=== PATIENT | female | born 1985 | race Caucasian/White ===

== ENCOUNTER 2021-01-29 09:34 | Emergency (ER) | payer OTHER ==
[~2021-01-29] VITALS: Ht 165.1 cm; Wt 75.0 kg
[2021-01-29] MEDS ORDERED: DOXY100C3 PO (09:45)
[2021-01-29] MEDS ORDERED: DOXYCYCLINE HYCLATE 100 MG TABLET PO ONE (09:45)
--- NOTE | 2021-01-29 09:46 | PHYS DOC ---
Adult General HPI HPI Patient is a 35-year-old female presenting via EMS for left ocasio wound. Reports she has had a history of folliculitis and has had prior history of cellulitis requiring antibiotics and abscesses requiring incision and drainage. Reports she kicked her left anterior ocasio approximately 1 week ago on an unknown househo ld object that caused a cut. This subsequently got infected with increased exudate drainage and spreading erythema. She has been putting triple antibiotic ointment on lesion without improvement. She is here concern for infection and need for antibiotics. Denies any fever, no known history of MRSA infection, denies any IV drug use Review of Systems Review of Systems Fourteen body systems of review of systems have been reviewed. See HPI for pertinent positives and negative responses, other uribe all other systems are negative, non-pertinent or non-contributory Physical Exam Physical Exam Constitutional: Well developed, well nourished, no acute distress, non-toxic appearance. HENT: Normocephalic, atraumatic, bilateral external ears normal, oropharynx moist, no oral exudates, nose normal. Eyes: PERRLA, EOMI, conjunctiva normal, no discharge. Neck: Normal range of motion, no tenderness, supple, no stridor. Cardiovascular: Heart rate regular per monitor Lungs & Thorax: No respiratory distress or accessory muscle use, bilateral chest rise Abdomen: Abdomen soft, non-tender, bowel sounds present in all quadrants, no guarding or rebound, nonacute abdomen. Skin: Warm, dry, there is a portion on distal portion of left anterior ocasio of a poorly healing scab with purulent material draining approximately 1.5 cm in diameter with associated surrounding erythema greater than 5 cm diameter that is warm to the touch Back: No tenderness, no CVA tenderness. Extremities: No tenderness, no cyanosis, no clubbing, ROM intact, no edema. Neurologic: Alert and oriented X 3, grossly normal motor & sensory function, no focal deficits noted. Psychologic: Odd affect, anxious mood Current Patient Data Vital Signs Vital Signs Date Time Temp Pulse Resp B/P (MAP) Pulse Ox O2 Delivery O2 Flow Rate FiO2 01/29/21 09:35 94.6 82 18 144/85 (104) 96 Room Air Vital Signs Date Time Temp Pulse Resp B/P (MAP) Pulse Ox O2 Delivery O2 Flow Rate FiO2 01/29/21 10:05 85 18 150/84 (106) 96 Room Air 01/29/21 09:35 94.6 EKG EKG [] Radiology/Procedures Radiology/Procedures [] Heart Score C/O Chest Pain: No Risk Factors: Risk Factors: DM, Current or recent (<one month) smoker, HTN, HLP, family history of CAD, obesity. Risk Scores: Risk Factors: DM, Current or recent (<one month) smoker, HTN, HLP, family history of CAD, obesity. Course & Med Decision Making Course & Med Decision Making ABCs unremarkable HPI physical exam and comprehensive ER work-up nonconcerning for any emergent or surgical issues Patient has simple cellulitis of distal portion of left anterior ocasio meeting indication for antibiotics. Joint decision made to treat with doxycycline as this will cover MRSA and has been tolerated by patient in the past Close PCP follow-up with continued wound care instructions and compliance to medication regimen advised Celestina Disclaimer Celestina Disclaimer This electronic medical record was generated, in whole or in part, using a voice recognition dictation system. Departure Departure: Impression: Primary Impression: Left leg cellulitis Disposition: HOME / SELF CARE / HOMELESS Condition: STABLE Patient Instructions: Cellulitis Additional Instructions: You were seen for an infection called cellulitis. You should eli the area of redness when you get home. If your redness spreads past the marked area at 24 hours you should have it evaluated again. You do not have an abscess right now but you could develop one. If so you will need to have it drained. You should return to the ED immediately if you develop worsening pain, fever, swelling, redness, drainage, any sign of abscess, or any other new or concerning symptoms. Take the entire course of antibiotics as prescribed. CAMPBELL JUARES DO Jan 29, 2021 09:45
[2021-01-29 10:05] VITALS: BP 150/84
[2021-01-30] MEDS ORDERED: DOXY100C3 PO ×2 (12:12→12:15)
== END 2021-01-29 10:05 | disposition home or self-care (01) ==
LOC: ER 09:34
DX: L03.116 Cellulitis of left lower limb (principal)
CPT/HCPCS: 99283

== ENCOUNTER 2021-01-30 11:41 | Emergency (ER) | payer SELFPAY ==
[~2021-01-30] VITALS: Ht 165.1 cm; Wt 127.4 kg
[2021-01-30 11:41] VITALS: BP 159/102
[~2021-01-30 11:41] MED LIST: DOXY100C3 PO
[2021-01-30] MEDS ORDERED: DOXYCYCLINE HYCLATE 100 MG TABLET ONE (12:10)
[2021-01-30] MEDS ORDERED: DOXY100C3 PO ×2 (12:12→12:15)
--- NOTE | 2021-01-30 12:13 | PHYS DOC ---
Past History Additional Past Medical Histor: HPV, prediabetes (PRABHU DAVID) Past Surgical History: Cholecystectomy, Other Additional Past Surgical Histo: ECTOPIC (PRABHU DAVID) Alcohol Use: None (PRABHU DAVID) General Adult EDM: Chief Complaint: WOUND CHECK HPI: HPI: Patient is a 35 year old female who returns to the emergency department for diagnosed left lower leg cellulitis yesterday. Patient reports she was instructed to return to the emergency department if the infection spread past the markings applied by the provider yesterday. Patient was unable to cook pickled meat her prescription this morning due to transportation issues. Patient states that she does not have a car, her girlfriend does not have a car, and neither do her roommates. She is unable to ambulate without pain at this time, so she was unable to walk to the pharmacy to cook pickled meat the prescription. She has no new complaints since yesterday, only spreading erythema. (PRABHU DAVID) Review of Systems: Review of Systems: ROS negative except as mentioned in HPI. (PRABHU DAVID) Allergies: Allergies: Allergies Coded Allergies Type Severity Reaction Last Updated Verified Penicillins Allergy Unknown 01/29/21 Yes Sulfa (Sulfonamide Antibiotics) Allergy Unknown 01/29/21 Yes amoxicillin Allergy Unknown 01/29/21 Yes clindamycin Allergy Unknown 01/30/21 Yes erythromycin base Allergy Unknown 01/29/21 Yes sulfamethoxazole Allergy Unknown 01/29/21 Yes trimethoprim Allergy Unknown 01/29/21 Yes (PRABHU DAVID) Physical Exam: PE: Constitutional: Obese, poorly groomed, no acute distress, non-toxic appearance. Cardiovascular: Heart rate regular rhythm, no murmur. Lungs & Thorax: Bilateral breath sounds clear to auscultation. Skin: Left lower extremity has a 5 cm open wound surrounded by erythematous skin that is warm to the touch without fluctuance. Erythema extends beyond margins drawn. Additionally, patient has 1 cm open wound without fluctuance to the dorsal aspect of her left hand. Extremities: No cyanosis, no clubbing, ROM intact, no edema. (PRABHU DAVID) Current Patient Data: Vital Signs: Vital Signs Date Time Temp Pulse Resp B/P (MAP) Pulse Ox O2 Delivery O2 Flow Rate FiO2 01/30/21 11:41 97.7 89 20 159/102 (121) 96 Room Air (PRABHU DAVID) Heart Score: C/O Chest Pain: No (PRABHU DAVID) Course & Med Decision Making: Course & Med Decision Making Pertinent Labs and Imaging studies reviewed. (See chart for details) Patient's main concern today is an inability to fill her prescription from yesterday's visit. Patient will be provided with a cab pass, so that she can save her available funds for filling the prescription. She was also provided with a good Rx card for discount at the pharmacy. She is provided with a list of local primary care providers as well as the community resources list for further primary care. Discussed with patient the cardiovascular and renal risks to uncontrolled hypertension. Patient understands and is agreeable to discharge plan. (PRABHU DAVID) Dragon Disclaimer: Dragon Disclaimer: This electronic medical record was generated, in whole or in part, using a voice recognition dictation system. (PRABHU DAVID) Attending Co-Sign The patient was seen and interviewed as well as examined at the bedside. The chart was reviewed. The case was discussed. Agree with the plan of care. (BETINA COLÓN DO) Departure Departure: Impression: Primary Impression: Cellulitis of left lower leg Additional Impressions: Open wound of left hand Qualified Codes: S61.402D - Unspecified open wound of left hand, subsequent encounter Economic circumstance affecting care Disposition: 01 HOME / SELF CARE / HOMELESS Condition: STABLE Referrals: PCP,NO (PCP) Patient Instructions: Cellulitis, [id number], Hypertension, [id number] Additional Instructions: As discussed, we now have a plan in place for you to obtain your antibiotic prescription. You were provided with 1 dose during yesterday's visit, and one additional today. Please return to the emergency department if you have worsening symptoms, especially fever, chills, night sweats or increased discharge from your wound. Please follow-up with one of the clinics or primary care providers listed today for further evaluation and management of your elevated blood pressure. Scripts Doxycycline Hyclate (DOXYCYCLINE HYCLATE) 100 Mg Capsule 1 CAP PO BID for cellulitis, #12 CAP Prov: PRABHU DAVID 01/30/21 PRABHU DAVID Jan 30, 2021 12:13 BETINA COLÓN DO Jan 31, 2021 06:39
[2021-01-30] MEDS ORDERED: DOXYCYCLINE HYCLATE 100 MG TABLET PO ONE (12:30)
== END 2021-01-30 12:20 | disposition home or self-care (01) ==
LOC: ER 11:41
DX: S81.802D Unspecified open wound, left lower leg, subsequent encounter (principal); L03.116 Cellulitis of left lower limb; Z88.0 Allergy status to penicillin; Z88.2 Allergy status to sulfonamides; Z88.1 Allergy status to other antibiotic agents; X58.XXXD Exposure to other specified factors, subsequent encounter
CPT/HCPCS: 99283

== ENCOUNTER 2021-02-01 19:00 | Inpatient (IN) | payer SELFPAY ==
[~2021-02-01] VITALS: Ht 167.6 cm; Wt 123.8 kg
[2021-02-01] MEDS ORDERED: VANCOMYCIN 1 GM in IV NORMAL SALINE 250ML 250 ML IV ONE ×2 (19:30→21:00)
[2021-02-01] MEDS ORDERED: VANCOMYCIN 2 GM in IV NORMAL SALINE 500ML 500 ML IV ONE (19:45)
--- NOTE | 2021-02-01 19:50 | PHYS DOC ---
Past History Additional Past Medical Histor: HPV, prediabetes (PRABHU DAVID) Past Surgical History: Cholecystectomy, Other Additional Past Surgical Histo: ECTOPIC (PRABHU DAVID) Alcohol Use: None Social History Narrative: prior IV drug use, reports no longer uses (PRABHU DAVID) General Adult EDM: Chief Complaint: CELLULITIS HPI: HPI: Patient is a 35 year old female seen in the emergency department twice prior this week who presents with worsening left lower extremity cellulitis. Patient reports she was able to fill her prescription and has been taking her medication as prescribed, but her symptoms have worsened. The erythema has spread, and the wound is now weeping purulent discharge. She reports she is having a hard time ambulating and taking care of herself at home. She denies objective fever, but reports chills and night sweats. (PRABHU DAVID) Review of Systems: Review of Systems: ROS negative except as mentioned in HPI. (PRABHU DAVID) Current Medications: Current Meds: Current Medications Medications (Trade) Dose Ordered Sig/Anny Start Time Stop Time Status Last Admin Dose Admin Vancomycin HCl (Vanco Per Pharmacy) 1 each PRN DAILY PRN 02/01/21 19:45 Vancomycin HCl 1 gm/Sodium Chloride 250 ml @ 250 mls/hr Q12HR ONCE 02/01/21 21:00 02/01/21 21:59 UNV Vancomycin HCl 2 gm/Sodium Chloride 500 ml @ 250 mls/hr 1X ONCE 02/01/21 19:45 02/01/21 21:44 (PRABHU DAVID) Allergies: Allergies: Allergies Coded Allergies Type Severity Reaction Last Updated Verified Penicillins Allergy Unknown 01/29/21 Yes Sulfa (Sulfonamide Antibiotics) Allergy Unknown 01/29/21 Yes amoxicillin Allergy Unknown 01/29/21 Yes clindamycin Allergy Unknown 01/30/21 Yes erythromycin base Allergy Unknown 01/29/21 Yes sulfamethoxazole Allergy Unknown 01/29/21 Yes trimethoprim Allergy Unknown 01/29/21 Yes (PRABHU DAVID) Physical Exam: PE: Constitutional: Obese, well developed, well nourished, no acute distress, non- toxic appearance. Cardiovascular: Heart rate regular rhythm, no murmur. Lungs & Thorax: Bilateral breath sounds clear to auscultation. Skin: Left lower leg cellulitis has spread proximally to the knee, increased areas of blistering, original wound weeping purulent discharge. (PRABHU DAVID) Current Patient Data: Vital Signs: Vital Signs Date Time Temp Pulse Resp B/P (MAP) Pulse Ox O2 Delivery O2 Flow Rate FiO2 02/01/21 19:00 98.2 90 18 148/101 (117) 98 Room Air (PRABHU DAVID) Heart Score: C/O Chest Pain: No (PRABHU DAVID) Course & Med Decision Making: Course & Med Decision Making Pertinent Labs and Imaging studies reviewed. (See chart for details) This is patient's third visit to the ER this week with worsening symptoms. Patient reports she cannot care for herself at home. She will be admitted to hospitalist for IV antibiotic treatment to treat presumed staph cellulitis. (PRABHU DAVID) Dragon Disclaimer: Dragon Disclaimer: This electronic medical record was generated, in whole or in part, using a voice recognition dictation system. (PRABHU DAVID) Departure Departure: Impression: Primary Impression: Cellulitis of left lower extremity without foot Disposition: ADMITTED INPATIENT Admitting Physician: Ministerio Jason (PRABHU DAVID) Condition: GUARDED Referrals: HARLEY MENDOZA MD (PCP) Attending Signature Attending Signature I have reviewed the PA/PACKAGER's note and plan of care. I was available for consultation as needed during the patient's visit in the emergency department. I agree with the clinical impression, plan, and disposition. (VINNY VALENTIN DO) PRABHU DAVID Feb 01, 2021 19:50 VINNY VALENTIN DO Feb 01, 2021 22:15
[2021-02-01 20:27] LABS: BASO # 0.1 x10^3/uL (0.0-0.2); BASO % 0 % (0-3); EOS # 0.4 x10^3/uL (0.0-0.7); EOS % 3 % (0-3); HEMATOCRIT 40.5 % (36.0-47.0); HEMOGLOBIN 13.8 g/dL (12.0-15.5); LYMPH # 1.9 x10^3/uL (1.0-4.8); LYMPH % 13 % (24-48); MEAN CORPUSCULAR HEMOGLOBIN 31 pg (25-35); MEAN CORPUSCULAR HGB CONC 34 g/dL (31-37); MEAN CORPUSCULAR VOLUME 92 fL (79-100); MONO # 1.2 x10^3/uL (0.0-1.1); MONO % 8 % (0-9); NEUT # 11.3 x10^3uL (1.8-7.7); NEUT % 76 % (31-73); PLATELET COUNT 197 x10^3/uL (140-400); RED BLOOD COUNT 4.41 x10^6/uL (3.50-5.40); RED CELL DISTRIBUTION WIDTH 13.1 % (11.5-14.5); WHITE BLOOD COUNT 14.9 x10^3/uL (4.0-11.0)
[2021-02-01 20:31] LABS: CALCIUM 9.1 mg/dL (8.5-10.1); CREATININE 0.7 mg/dL (0.6-1.0); GFR 95.2; POTASSIUM 3.7 mmol/L (3.5-5.1)
[2021-02-01 20:44] LABS: ALBUMIN 2.9 g/dL (3.4-5.0); ALBUMIN/GLOBULIN RATIO 0.7 (1.0-1.7); TOTAL BILIRUBIN 0.7 mg/dL (0.2-1.0); TOTAL PROTEIN 7.1 g/dL (6.4-8.2)
[2021-02-01] MEDS: VANCOMYCIN PER PHARMACY MC PRN (21:12)
--- NOTE | 2021-02-01 21:13 | NUR ---
Pharmacy Vancomycin Dosing Note S:Consulted to monitor and dose vancomycin started 02/01/21. O:JOSÉ LUIS DIEZ is a 35 year old F with Cellulitis, . Height: 5 feet, 5 inches Weight: 127.4 kg Viola Body Weight: 57.00 Adjusted Body Weight: 85.16 Dosing Weight: Actual Other Antibiotics: None LABS: Last BUN: 8 Last Creatinine: 0.7 Creatinine Clearance: 150.80 Last WBC: 14.9 Vancomycin Dosing: Loading Dose: 2000 mg x1 Dosing Weight: Actual Target Trough: 10-20 A: Based on: Actual weight, renal function, and indication P: 1. Begin Vancomycin 1500 mg IV q8h 2. Follow up Trough level on 02/02/21 at 1930 3. Pharmacy will continue to monitor, follow and adjust therapy as needed. FRANCISCO JARRETT, 02/01/21 0028
[2021-02-01] MEDS: IBUPROFEN 600 MG TABLET. PO PRN (21:20)
[2021-02-01 21:41] LABS: AMPHETAMINE/METHAMPHETAMINE POS (NEG); BARBITURATES NEG (NEG); BENZODIAZEPINES NEG (NEG); CANNABINOIDS POS (NEG); COCAINE NEG (NEG); METHADONE NEG (NEG); OPIATES NEG (NEG); PHENCYCLIDINE NEG (NEG)
[2021-02-01 21:55] LABS: COLOR,URINE YELLOW
[2021-02-01 21:58] LABS: CLARITY,URINE CLOUDY; GLUCOSE,URINE NEG (NEG)
[2021-02-01 21:59] LABS: BACTERIA,URINE MOD /HPF (0-FEW); BILIRUBIN,URINE SMALL (NEG); NITRITE,URINE NEG (NEG); SQUAMOUS EPITHELIAL CELL,UR MANY /LPF
[2021-02-01 22:44] VITALS: BP 128/89
[2021-02-01 23:00] VITALS: BP 137/85
--- NOTE | 2021-02-02 00:05 | NUR ---
The patient, JOSÉ LUIS DIEZ, 35 y/o, F admitted by MIKI HERNANDEZ MD, was given written information regarding hospital policies, unit procedures and contact persons. Valuables were checked and vital signs were obtained. Reviewed with PT her PMH, PSH, SH, FH and medications. PT only actively takes doxycycline which was recently prescribed for the cellulitis.
[2021-02-02] MEDS: MORPHINE SULFATE 4 MG/ML DISP.SYRIN. IV PRN ×2 (00:51→21:38)
[2021-02-02] MEDS ORDERED: VANCOMYCIN 1.5 GM in IV NORMAL SALINE 500ML 500 ML IV SCH ×2 (04:00→23:00)
[2021-02-02 05:23] VITALS: BP 129/77
--- NOTE | 2021-02-02 06:29 | NUR ---
PT's EJ not flushing when antibiotics due. New IV placed in LT hand. PT complained of severe pain about half way through infusion and refused to continue. Vanco stopped. PT explained medications for pain are IV.
[2021-02-02] MEDS: LACTOBACILLUS RHAMNOSUS GG 1 CAPSULE. PO SCH ×2 (08:16→21:21)
[2021-02-02] MEDS: IBUPROFEN 600 MG TABLET. PO PRN ×3 (08:19→21:21)
--- NOTE | 2021-02-02 08:51 | HP ---
DATE OF SERVICE: 02/02/2021 ADMIT DATE: 02/01/2021 CHIEF COMPLAINT: Infection, left leg. HISTORY OF PRESENT ILLNESS: The patient is a 35-year-old female admitted through the ED. This was her third visit this week. She has an infection in the anterior surface of the left ocasio. Oral antibiotics have not been effective. She is borderline diabetic. This clearly clinically is a Staphylococcus infection. Antibiotics have been resistant. She was admitted then for intravenous vancomycin. PAST MEDICAL HISTORY: Significant for intravenous drug abuse. She also uses other recreational drugs. She tested positive for methamphetamine and tetrahydrocannabis. She has a medical history of human papilloma virus infection, borderline diabetes. PAST SURGICAL HISTORY: Includes cholecystectomy 3 years ago and resection of ectopic . ALLERGIES: SHE HAS MULTIPLE DRUG ALLERGIES INCLUDING INFLUENZA VACCINE, PENICILLIN, SULFA DRUGS, AMOXICILLIN, CLINDAMYCIN, ERYTHROMYCIN, SULFA DRUGS, AND TRIMETHOPRIM. EXACT REACTION IS UNCLEAR. SOCIAL HISTORY: She is a smoker. She uses alcohol. FAMILY HISTORY: Noncontributory. Parents are alive in their late 50s. SOCIAL HISTORY: She moved here from [place]. She has no local physician. CURRENT MEDICINES: None. REVIEW OF SYSTEMS: Significant for the localized leg pain. She has definite psychiatric issues and some personality issues too. All other systems reviewed and turned out to be negative. PHYSICAL EXAMINATION: GENERAL: When I saw her, this is a young female in no acute distress. VITAL SIGNS: Initial vital signs showed a blood pressure 129/77 mmHg, pulse is 80 and regular, temperature 97.8 degrees Fahrenheit, and her oxygen saturation 94% on room air. HEENT: Head is without trauma. The pupils are reactive. Sclerae is nonicteric. The oropharynx is clear. NECK: Supple. LUNGS: Good breath sounds. CARDIOVASCULAR: Showed regular heart tones. No gallops. ABDOMEN: Soft. EXTREMITIES: Without edema. There is redness and erythema extending residential up her left anterior ocasio. There are no open wounds identified. NEUROLOGIC FUNCTION: Focally intact. Speech is fluent. She had no focal deficits. PERTINENT LABORATORY STUDIES: Admission hemoglobin was 13.8 g/dL with a white count of 14,900. Chemistry panel showed stable creatinine 0.7 mg/dL. Transaminases were normal. Nonfasting blood sugar 127. Toxicology screen positive for amphetamine byproducts and cannabinoids. Serology negative for coronavirus. ASSESSMENT: 1. A 35-year-old female with cellulitis of the left lower extremity, most likely Staphylococcus infection, resistant to several antibiotics. Because of her allergy, we are limited in our choice. 2. Polysubstance abuse. 3. Underlying depression and personality disorder. 4. Noncompliance of meds. PLAN: 1. Admit to the inpatient unit. 2. I set boundaries as to what the treatment plan was and what we would tolerate. If she is not happy with the services here, she is welcome to leave against medical advice. 3. Continue vancomycin as ordered. 4. Diet as tolerated. FOREST DR: Enriqueta TID: [id number]
--- NOTE | 2021-02-02 09:00 | NUR ---
Nursing note: Pt c/o of pain 10/10 at LLE and head. No IV pain med given d/t lack of IV access. IV accesses at right neck and left hand are nonfunctioning. Ibuprofen PO given per PRN order. Wound at LLE sizing 3 cm x 2.5 cm, dressing changed. Pt has expiratory wheezing, Dr. Jason aware, no order received. Pt ambulated to bathroom with walker and had a shower.
--- NOTE | 2021-02-02 09:58 | NUR ---
NURSING NOTE PICC ORDER PLACED THIS RN IS WORKING WITH MAXIMO LOCO WITH THIS PT. PT STATES SHE DOES NOT WANT TO BE STUCK ANY MORE FOR IV LINES. PT CURRENTLY HAS 2 IV LINES, 20 REJ AND 22 LEFT HAND. BOTH IV LINES ARE NOT PATENT, IV LINES HAVE BEEN DISCONTINUED. PER DR HERNANDEZ, ORDER FOR PICC PLACED FOR IV TREATMENT FOR CELLULITIS. PT INFORMED AND UNDERSTANDING. THIS RN PHONED [facility] AT 0925AM AND LEFT MESSAGE FOR RETURN CALL. WILL ATTEMPT TO CALL BACK IF NO RETURN CALL SOON. MAXIMO HARO. Addendum: 02/02/21 at 1046 by TAHIR MADDOX RN RN [facility] CALLED BACK, NO AVAILABLE PROVIDERS UNTIL LATER NEXT WEEK. WILL SEND MESSAGE TO [facility] WHO IS ON FOR TOMORROW.
[2021-02-02 11:15] VITALS: BP 139/83
[2021-02-02 15:09] VITALS: BP 141/86
[2021-02-02] MEDS: ALBUTEROL SULFATE 2.5 MG/3 ML NEBU. NEB PRN ×2 (15:10→21:21)
--- NOTE | 2021-02-02 15:28 | RAD ---
XR CHEST 1V INDICATION: INCREASING WHEEZING AND SHORTNESS OF AIR / Spl. Instructions: / History: . COMPARISON STUDY: None. FINDINGS: Lungs: Normal lung volume. No pulmonary mass or consolidation. The tracheobronchial tree and hilar st ructures are normal. Pleura: No pleural effusion or pneumothorax. Heart and Mediastinum: The cardiomediastinal silhouette is normal. The great vessels of the thorax ar e normal. Bones and Soft Tissues: The bones and soft tissues are within normal limits. IMPRESSION: No acute cardiopulmonary process. Electronically signed by: Srinivas Mcginnis MD (02/02/2021 3:26 PM) [id number]
--- NOTE | 2021-02-02 16:30 | NUR ---
Nursing note: Patient complained of hard time breathing. RR 22, wheezing heard without stethoscope, nonproductive cough, O2 sat 94% at RA. Dr. Jason notified, breathing treatment and portable chest x-ray performed per order. Pt states she "feel a little better now" after the treatment. Will continue to monitor her conditions.
[2021-02-02 20:56] VITALS: BP 138/94
--- NOTE | 2021-02-02 21:42 | NUR ---
Procedure: Following complete explanation of the PICC procedure including the indications, risks, and potential complications, informed consent was obtained. The possibility for infection was discussed along with signs, symptoms, and prevention. All the questions were answered. IV Device Protocol was used. Written and verbal patient education was provided. Hand hygiene performed. Standardized central line checklist was utilized. The patient was placed in the supine position, the arm was prepped with chlorhexidine and patient draped with maximum sterile barrier. 1 mL 1% lidocaine was infiltrated into the skin to provide local anesthesia. A thorough assessment of right upper extremity completed. Using real-time ultrasound guidance and standardized micro puncture set, Unable to advance catheter after axillary area, also accessed basilic on right and same situation, not able to advance in chest, pt tolerated well. Started IV in lower right FA, recommended tunneled CVC in IR at [facility]. Allergies and reactions INR BUN Cr Platelets Blood culture done blood culture results Order Verified Consent signed Previous PICC placement Past Medical/Surgical history and current diagnosis reviewed Patient Medical /Surgical History Related to PICC line placement None Arrhythmias Automatic Implantable Cardioverter Defibrillator (AICD) Cancer Chemotherapy Deep Vein Thrombosis (DVT) Diabetes Enlarged veins arm/neck Fracture of collar bone History of acute/chronic renal failure History of bleeding, bruising, clotting disorder Infectious Disease consult Irradiation Mastectomy with/without lymph resection { :} arm Neck/Chest Surgery Pacemaker Past central line or venous access device placement Probability of fistula placement Problems breathing lying flat Pulmonary Embolism (PE) Radiation Renal consult Septicemia/Bacteremia Suspected device related infection Vascular/Surgery arms Special considerations for PICC line placement None Anticoagulation therapy Arm contractures/ Compromised arm Burn(s) near insertion site Dermatitis Existing thrombosis/thrombophlebitis Infections Injured/sclerotic veins Open wound(s) near insertion site Scar(s) near insertion site Severe peripheral edema Using crutches PICC placement indication Caustic medication class drug usage, detention antibiotic usage, Multiple/ Frequent blood draws, Need for Central Venous Pressure (CVP) monitoring, Poor peripheral intravenous access Total Parenteral Nutrition (TPN) Name of PICC Nurse []
[2021-02-03] MEDS: ALBUTEROL SULFATE 2.5 MG/3 ML NEBU. NEB PRN ×2 (04:38→20:32)
[2021-02-03] MEDS: MORPHINE SULFATE 4 MG/ML DISP.SYRIN. IV PRN ×3 (04:59→14:22)
[2021-02-03 05:12] VITALS: BP 137/84
[2021-02-03] MEDS: VANCOMYCIN PER PHARMACY MC PRN ×2 (07:08→13:00)
[2021-02-03] MEDS: IBUPROFEN 600 MG TABLET. PO PRN ×3 (07:45→20:32)
[2021-02-03] MEDS: LACTOBACILLUS RHAMNOSUS GG 1 CAPSULE. PO SCH ×2 (07:45→20:32)
[2021-02-03] MEDS: VANCOMYCIN 2 GM in IV NORMAL SALINE 500ML 500 ML IV SCH ×2 (09:55→21:58)
[2021-02-03 10:29] VITALS: BP 144/78
--- NOTE | 2021-02-03 10:41 | PN ---
DATE: 02/03/2021 ATTENDING PHYSICIAN: Dr. Jason. SUBJECTIVE: Various somatic complaints. The pain in the leg is better, but she is complaining of diffuse musculoskeletal tension headaches. Unfortunately, she is not in control of her life. She is homeless. She has financial issues. She is currently living with a friend. OBJECTIVE FINDINGS: VITAL SIGNS: Blood pressure this morning is 137/84, her temperature is 97.8 degrees Fahrenheit. Her oxygen saturation 94% on room air and her pulse is 74 and regular. HEENT: Head is without trauma. Pupils are reactive. Sclerae nonicteric. Oropharynx clear. NECK: Supple. There are numerous trigger points in the posterior cervical spine. Range of motion is adequate. LUNGS: Clear. The wheezing yesterday has subsided. CARDIOVASCULAR: Showed distant heart tones. No gallops. ABDOMEN: Morbidly obese. EXTREMITIES: Show trace edema. NEUROLOGIC: Function focally intact. Affect is very flat. There is still redness and erythema, although it is less angry and is dissipating. There is still 2+ edema. SKIN: Otherwise, warm and dry. ASSESSMENT: 1. A 35-year-old female with refractory cellulitis, left lower extremity, refractory to outpatient care. Most likely, this is a methicillin-resistant Staphylococcus species. 2. Polysubstance abuse. 3. Major depression with anxiety. 4. Adomocilia (she is homeless). PLAN: 1. Continue vancomycin as ordered. We do have IV access now. 2. P.r.n. pain meds. 3. Long discussion regarding her predicament. She will be here for several more days until the infection is cleared up. We will try to procure some oral antibiotics that she can get access to at discharge. MENDEZ/ANSLEY/TRICIA DR: MENDEZ/bianca TID: [id number]
[2021-02-03] MEDS ORDERED: FUROSEMIDE 40 MG TABLET PO ONE (10:45)
[2021-02-03] MEDS: LORazepam 1 MG TABLET PO PRN ×2 (14:22→20:32)
[2021-02-03 16:02] VITALS: BP 152/92
[2021-02-03 19:00] VITALS: BP 143/79
[2021-02-04] MEDS: MORPHINE SULFATE 4 MG/ML DISP.SYRIN. IV PRN ×3 (01:25→17:43)
[2021-02-04] MEDS: ALBUTEROL SULFATE 2.5 MG/3 ML NEBU. NEB PRN ×4 (02:12→17:44)
[2021-02-04] MEDS: IBUPROFEN 600 MG TABLET. PO PRN (07:56)
[2021-02-04 08:30] VITALS: BP 147/96
--- NOTE | 2021-02-04 10:18 | PN ---
DATE: 02/04/2021 ATTENDING PHYSICIAN: Dr. Jason. SUBJECTIVE: No new complaints. Cough is improved. She is not wheezing. OBJECTIVE FINDINGS: VITAL SIGNS: Blood pressure this morning is 142/96, pulse is 63 and regular. She is afebrile. Oxygen saturation 99% on room air. HEENT: Head is without trauma. Pupils are reactive. Sclerae nonicteric. Oropharynx clear. NECK: Supple. LUNGS: Good breath sounds. No wheezing. CARDIOVASCULAR: Regular heart tones. ABDOMEN: Soft. EXTREMITIES: Show decreased edema. The redness and erythema of the left anterior leg is dissipating. SKIN: Warm and dry. ASSESSMENT: 1. A 35-year-old female with refractory cellulitis, left lower extremity, refractory to outpatient care. 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 2. Polysubstance abuse. 3. Major depression with anxiety. 4. Adomocilia (she is homeless). PLAN: 1. Continue vancomycin as ordered. 2. P.r.n., pain meds. 3. Diet as tolerated. 4. Tentative discharge plans for tomorrow. MENDEZ/JO DR: Enriqueta TID: [id number]
[2021-02-04] MEDS: VANCOMYCIN 2 GM in IV NORMAL SALINE 500ML 500 ML IV SCH ×2 (10:19→20:30)
[2021-02-04] MEDS: LACTOBACILLUS RHAMNOSUS GG 1 CAPSULE. PO SCH ×2 (10:20→20:30)
[2021-02-04 11:43] VITALS: BP 122/71
--- NOTE | 2021-02-04 16:09 | NUR ---
pt O2 checked periodically through the shift due to audible wheezing and appearance of respiratory distress. pt had O2 sat of 87% and nurse wanted to put on 2l nc to help with difficulty breathing. pt refused. breathing treatment also pulled and scanned and thenefused. Pt then pushed call light and asked for breathing treatment after refusing it. pt had done this a few times during the shift.
--- NOTE | 2021-02-04 17:44 | NUR ---
This nursing supervisor production department was informed of pt having complaints of nursing staff not taking care of her. This supervisor production department went to pt's room to talk to her. I explained that numerous times pt presses the call light and when staff responds, including this supervisor production department, pt is sleeping. Explained to pt that if she is sleeping, staff will let her rest. Pt quickly changed her complaint that her family hasn't been in to visit her. I reminded her of the no visitor policy due to the pandemic. She then stated that she talked to her father earlier on the phone. Pt states there is nothing she needs at this time.
[2021-02-04 20:00] VITALS: BP 156/88
[2021-02-04] MEDS: VANCOMYCIN PER PHARMACY MC PRN (23:42)
[2021-02-05] MEDS: MORPHINE SULFATE 4 MG/ML DISP.SYRIN. IV PRN ×2 (00:33→08:48)
[2021-02-05] MEDS: LORazepam 1 MG TABLET PO PRN (00:34)
[2021-02-05] MEDS: IBUPROFEN 600 MG TABLET. PO PRN (08:47)
[2021-02-05] MEDS: LACTOBACILLUS RHAMNOSUS GG 1 CAPSULE. PO SCH (08:47)
[2021-02-05] MEDS: ALBUTEROL SULFATE 2.5 MG/3 ML NEBU. NEB PRN (09:06)
[2021-02-05] MEDS: VANCOMYCIN 2 GM in IV NORMAL SALINE 500ML 500 ML IV SCH (10:00)
[2021-02-05 10:30] VITALS: BP 148/74
--- NOTE | 2021-02-05 10:30 | NUR ---
this nursing gravity prospecting supervisor was called to the unit, per pt request regarding her poor nursing services. Upon arrival to the unit, Dr. Jason on unit making rounds. This HS accompanied Dr. Jason while seeing this pt. Dr. Jason discharging pt today, Dr. Jason informed pt that we would cab voucher to get her home. This HS remained at bedside to talk with pt about her complaints about her nursing care. This HS also spoke with pt yesterday regarding the same complaint. Pt states that the nursing staff is not doing everything she is asking of them, such as pulling her bedding up for her, picking up items that she threw on the floor such as her personal belongings, trash, food. Staff has been encouraging her to be independent since she is being discharged home. Pt continues excessive call light use and when staff responds she is verbally aggressive or sleeping. Reassured pt that if she is resting, staff would let her rest. Pt stated that she really is frustrated that her family has not been checking on her, even though she has talked to both of her parents daily.
--- NOTE | 2021-02-05 11:21 | DS ---
DATE OF DISCHARGE: 02/05/2021 ATTENDING PHYSICIAN: Dr. Jason. FINAL DISCHARGE DIAGNOSES: 1. Cellulitis of the left lower extremity, improved. 2. Polysubstance abuse. 3. Major depression with anxiety. 4. Adomicilia (she is homeless). HISTORY AND PHYSICAL: The patient is a 35-year-old female who is homeless. She has an infection. She has been in the ER 3 times. It is most likely Staphylococcus infection that has been refractory to outpatient therapy. ALLERGIES: She has multiple drug allergies including SULFA DRUGS, PENICILLIN AND CLINDAMYCIN. PHYSICAL EXAMINATION: Please see the dictated note. PERTINENT LABORATORY AND X-RAY STUDIES: Admission hemoglobin was 13.8 g/dL, white count 14,900. Electrolytes within normal range. Nonfasting blood sugar 127. Toxicology screen positive for amphetamine and tetrahydrocannabis bi-products. Coronavirus swab is negative. COURSE IN HOSPITAL: The patient was admitted. She was started on intravenous vancomycin for 4 full days with marked improvement. Pain was managed and diet was advanced. She did well. Her infection and swelling came down very nicely and she was much improved. On the fifth hospital day, she was discharged with doxycycline. She was started the script for 100 mg p.o. b.i.d. for 7 more days and stop. Because of allergy to SULFA DRUGS, I recommended Levaquin 500 mg p.o. daily for 7 more days. Strong encouragement to avoid further recreational drug use whether or not she will make these changes we may ____. We got her a cab to get her to her current temporary housing situation. She was discharged from our hospital in stable condition with explicit drug and followup care. Total discharge time spent is 39 minutes. MENDEZ SKELTON: MENDEZ/bianca TID: [id number]
--- NOTE | 2021-02-05 11:52 | NUR ---
Discharge Note: JOSÉ LUIS DIEZ Discharge instructions and discharge home medications reviewed with Patient and a copy given. All questions have been answered and understanding verbalized. Discontinued lines and drains. Patient discharged to Home or Self Care via Wheelchair.
== END 2021-02-05 11:40 | disposition home or self-care (01) | DRG 603 ==
LOC: ER 19:00 → 1 SOUTH 19:30
PROVIDERS: ADMIT Hospitalist; ATTEND Hospitalist
DX: L03.116 Cellulitis of left lower limb (principal); F17.200 Nicotine dependence, unspecified, uncomplicated; F19.10 Other psychoactive substance abuse, uncomplicated; F60.9 Personality disorder, unspecified; F41.8 Other specified anxiety disorders; R73.03 Prediabetes; B95.8 Unspecified staphylococcus as the cause of diseases classified elsewhere; Z20.822 Contact with and (suspected) exposure to COVID-19; Z88.1 Allergy status to other antibiotic agents; Z88.0 Allergy status to penicillin; Z91.14 Patient's other noncompliance with medication regimen; Z59.00 Homelessness unspecified; Z90.49 Acquired absence of other specified parts of digestive tract
CPT/HCPCS: 36415; 71045; 80053; 80307; 81001; 81025; 83605; 85025; 87040; 87086; 87426; 94640; 96365; 96366; J2270; J3370; J7040; U0003; 99285-25; J7613